=== PATIENT | female | born 1945 | race Caucasian/White ===

== ENCOUNTER 2024-11-24 09:11 | Inpatient (IN) | payer MEDICARE ==
[2024-11-24] VITALS (13 sets, daily range): BP systolic 101–147; BP diastolic 57–88; TEMP 97.2–97.9; O2SAT 97–99
[~2024-11-24] VITALS: Ht 152.4 cm; Wt 63.0 kg
[2024-11-24] MEDS ORDERED: ALBUTEROL FS 2.5 MG/3 ML VIAL.NEB ONE (09:22)
[2024-11-24] MEDS ORDERED: IPRATROPIUM NEB FS 0.5 MG/2.5 ML AMPUL.NEB ONE (09:22)
[2024-11-24] MEDS ORDERED: Magnesium 1GM/D5W 100ML PREMIX 200 ML IV ONE (09:23)
[2024-11-24] MEDS ORDERED: methylPREDNISolone SOD SUCC 125 MG/2ML VIAL ONE (09:23)
[2024-11-24] MEDS: IPRATROPIUM NEB FS 0.5 MG/2.5 ML AMPUL.NEB NEB ONE (09:29)
[2024-11-24] MEDS: ALBUTEROL FS 2.5 MG/3 ML VIAL.NEB NEB ONE (09:29)
[2024-11-24] MEDS: CEFTRIAXONE 1GM BAG (ER ONLY) 50 ML IV ONE (09:30)
[2024-11-24] MEDS: methylPREDNISolone SOD SUCC 125 MG/2ML VIAL IV ONE (09:30)
[2024-11-24] MEDS: Magnesium 1GM/D5W 100ML PREMIX 200 ML IV ONE (09:30)
[2024-11-24] MEDS: IV NS 0.9% 1,000 ML BAG IV ONE (09:30)
[2024-11-24 09:37] LABS: BASOPHILS % (AUTO) 0.2 % (0.0-2.0); EOSINOPHILS # (AUTO) 0.1 K/uL (0.0-0.7); EOSINOPHILS % (AUTO) 1.3 % (0.0-6.0); HEMATOCRIT 33 % (33-45); LYMPHOCYTES # (AUTO) 1.6 K/uL (0.8-4.8); LYMPHOCYTES % (AUTO) 20.9 % (20.0-44.0); MEAN CORPUSCULAR HEMOGLOBIN 33 PG (26.0-33.0); MEAN CORPUSCULAR HGB CONC 33 g/dl (31.0-36.0); MEAN CORPUSCULAR VOLUME 99 fL (82-100); MONOCYTES # (AUTO) 0.8 K/uL (0.1-1.30); NEUTROPHILS # (AUTO) 5.1 K/uL (1.8-8.9); NEUTROPHILS % (AUTO) 66.6 % (43.0-81.0); PLATELET COUNT (AUTO) 175 K/uL (150-450); RED BLOOD CELL COUNT(AUTO) 3.34 MIL/uL (4.0-5.2); RED CELL DISTRIBUTION WIDTH 13.5 % (11.5-15.0); WHITE BLOOD COUNT (AUTO) 7.7 K/uL (4.3-11.0)
[2024-11-24 09:45] LABS: CALCIUM, SERUM 9.2 mg/dL (8.5-10.1); CARBON DIOXIDE 33 mmol/L (21-32); CHLORIDE 104 mmol/L (98-107); CREATININE 1.1 mg/dL (0.6-1.3); GLUCOSE 156 mg/dL (74-106); POTASSIUM 4.4 mmol/L (3.5-5.1); SODIUM SERUM 140 mmol/L (136-145); UREA NITROGEN, BLOOD 29 mg/dL (7-18)
[2024-11-24 09:54] LABS: LACTIC ACID 1.1 mmol/L (0.4-2.0)
[2024-11-24] MEDS: AZITHROMYCIN 500 MG in IV D5W 250 ML IV ONE (10:30)
[2024-11-24 10:41] LABS: ABG BASE EXCESS -1.8 mmol/L (-2.0-3.0); ABG OXYGEN SATURATION 99.3 % (94.0-98.0); ABG PCO2 58.4 mmHg (32.0-45.0); ABG PH 7.264 (7.350-7.450); ABG PO2 512.3 mmHg (83.0-108.0); ABG TOTAL HEMOGLOBIN 10.7 G/dL (12.0-16.0); COHb 0.2 % (0.5-1.5); MetHb 0.4 % (0.0-1.5); O2Hb 98.7 % (94.0-97.0); SITE, ABG RIGHT RADIAL
[2024-11-24] MEDS ORDERED: ACETAMINOPHEN 325 MG TABLET PO PRN (11:00)
[2024-11-24] MEDS ORDERED: ZOLPIDEM TARTRATE 5 MG TABLET PO PRN (11:00)
[2024-11-24] MEDS ORDERED: MAG HYDROX/AL HYDROX/SIMETH 30 ML UDC PO PRN (11:00)
[2024-11-24] MEDS ORDERED: Z GUARD REMEDY 4 OZ OINT TP PRN (11:00)
[2024-11-24] MEDS ORDERED: ONDANSETRON HCL/PF 4 MG/2 ML VIAL IVP PRN (11:00)
[2024-11-24] MEDS ORDERED: MAGNESIUM HYDROXIDE 30 ML UDC PO PRN (11:00)
[2024-11-24] MEDS: methylPREDNISolone SOD SUCC 40 MG/ML VIAL IV SCH (12:53)
[2024-11-24] MEDS: LEVOFLOXACIN 500 MG /D5W 100ML 500 MG in PREMIX 1 EA IV ONE (12:53)
[2024-11-24] MEDS: ENOXAPARIN SODIUM 40 MG/0.4 ML DISP.SYRIN SQ SCH (12:54)
[2024-11-24] MEDS: IV D5/0.45 NACL 1,000 ML IV PRN (12:56)
[2024-11-24] MEDS ORDERED: AMLO2.5T2 PO (13:14)
[2024-11-24] MEDS ORDERED: FURO-145 PO (13:14)
[2024-11-24] MEDS ORDERED: VALS160T2 PO (13:14)
[2024-11-24] MEDS ORDERED: PRED10TA PO (13:14)
[2024-11-24] MEDS ORDERED: ESCI10TA PO (13:14)
[2024-11-24] MEDS ORDERED: IPRA4AER IH (13:14)
[2024-11-24] MEDS ORDERED: ACYC400T19 PO (13:14)
[2024-11-24] MEDS ORDERED: BUDE10.2 IH (13:14)
[2024-11-24] MEDS ORDERED: CYAN500T64 PO (13:14)
[2024-11-24] MEDS ORDERED: SUCR1TAB PO (13:14)
[2024-11-24] MEDS ORDERED: MIRT-90 PO (13:14)
[2024-11-24] MEDS ORDERED: MAGN250T10 PO (13:14)
[2024-11-24] MEDS ORDERED: HYALURONIDASE INJ (13:14)
[2024-11-24] MEDS ORDERED: FLUO10CA26 PO (13:14)
[2024-11-24] MEDS ORDERED: ATOR20TA PO (13:14)
[2024-11-24] MEDS ORDERED: PYRI60TA2 PO (13:14)
[2024-11-24] MEDS ORDERED: ZOLP10TA2 PO (13:14)
[2024-11-24] MEDS ORDERED: ASPI-1169 PO (13:14)
[2024-11-24] MEDS ORDERED: CHOL100043 PO (13:14)
[2024-11-24] MEDS ORDERED: ZINC50TA69 PO (13:14)
[2024-11-24] MEDS ORDERED: ANAS1TAB50 PO (13:14)
[2024-11-24] MEDS ORDERED: MYRBETRIQ PO (13:14)
[2024-11-24] MEDS ORDERED: PANT40TA2 PO (13:14)
[2024-11-24] MEDS ORDERED: MONT10TA22 PO (13:14)
[2024-11-24] MEDS ORDERED: [UNRECOGNIZED DRUG - OTHER] INJ (13:14)
[2024-11-24] MEDS ORDERED: ALBU8.5H8 IH (13:14)
[2024-11-24] MEDS: IPRATROPIUM NEB FS 0.5 MG/2.5 ML AMPUL.NEB NEB SCH (15:22)
[2024-11-24] MEDS: ALBUTEROL FS 2.5 MG/0.5 ML VIAL.NEB NEB SCH (15:22)
[2024-11-25] VITALS (27 sets, daily range): BP systolic 94–150; BP diastolic 44–104; TEMP 97–97.7; O2SAT 96–100
[2024-11-25 04:34] LABS: HEMATOCRIT 29 % (33-45); HEMOGLOBIN 9.6 g/dL (11.5-14.8); LYMPHOCYTES # (AUTO) 0.3 K/uL (0.8-4.8); LYMPHOCYTES % (AUTO) 7.6 % (20.0-44.0); MEAN CORPUSCULAR HEMOGLOBIN 33 PG (26.0-33.0); MEAN CORPUSCULAR HGB CONC 34 g/dl (31.0-36.0); MEAN CORPUSCULAR VOLUME 99 fL (82-100); MONOCYTES # (AUTO) 0.3 K/uL (0.1-1.30); MONOCYTES % (AUTO) 6.8 % (2.0-12.0); NEUTROPHILS % (AUTO) 85.6 % (43.0-81.0); PLATELET COUNT (AUTO) 152 K/uL (150-450); RED CELL DISTRIBUTION WIDTH 13.6 % (11.5-15.0); WHITE BLOOD COUNT (AUTO) 4.6 K/uL (4.3-11.0)
[2024-11-25 04:44] LABS: MAGNESIUM 2.6 mg/dL (1.8-2.4); PHOSPHORUS 4.2 mg/dL (2.5-4.9); POTASSIUM 5.1 mmol/L (3.5-5.1)
[2024-11-25 04:56] LABS: THYROID STIMULATING HORMONE 0.42 uIU/mL (0.358-3.74)
[2024-11-25] MEDS: pyRIDostigmine BROMIDE 60 MG TABLET PO SCH (08:26)
[2024-11-25] MEDS: ASPIRIN 81 MG TAB.CHEW PO SCH (08:27)
[2024-11-25 09:31] LABS: ABG BASE EXCESS -0.8 mmol/L (-2.0-3.0); ABG OXYGEN SATURATION 99.5 % (94.0-98.0); ABG PCO2 56.8 mmHg (32.0-45.0); ABG PH 7.286 (7.350-7.450); ABG PO2 507.7 mmHg (83.0-108.0); ABG TOTAL HEMOGLOBIN 10.8 G/dL (12.0-16.0); COHb 0.3 % (0.5-1.5); MetHb 0.2 % (0.0-1.5)
[2024-11-25] MEDS: methylPREDNISolone SOD SUCC 40 MG/ML VIAL IV SCH (10:42)
[2024-11-25] MEDS: LEVOFLOXACIN 250 MG /D5W 50 ML 250 MG in PREMIX 1 EA IV SCH (11:06)
[2024-11-25] MEDS ORDERED: ZOLPIDEM TARTRATE 10 MG TABLET PO PRN (22:00)
[2024-11-26] VITALS (28 sets, daily range): BP systolic 91–174; BP diastolic 46–146; TEMP 97–98.1; O2SAT 85–98
[2024-11-26] MEDS: LORAZEPAM INJ 2 MG/ML VIAL IV ONE (01:50)
[2024-11-26] MEDS ORDERED: ESCITALOPRAM OXALATE (10 MG) 10 MG TABLET PO SCH (09:00)
[2024-11-26] MEDS: ACYCLOVIR 200 MG CAPSULE PO SCH (09:05)
[2024-11-26] MEDS: ASPIRIN 81 MG TAB.CHEW PO SCH (09:05)
[2024-11-26] MEDS: Fluoxetine 10 mg capsule PO SCH (09:06)
[2024-11-26] MEDS: ANASTROZOLE 1 MG TABLET PO SCH (09:07)
[2024-11-26] MEDS: FUROSEMIDE 20 MG/2 ML VIAL IV STA (10:08)
[2024-11-27] VITALS (27 sets, daily range): BP systolic 108–150; BP diastolic 51–76; TEMP 97–98; O2SAT 95–100
[2024-11-27 04:36] LABS: HEMATOCRIT 28 % (33-45); HEMOGLOBIN 9.2 g/dL (11.5-14.8); LYMPHOCYTES # (AUTO) 0.4 K/uL (0.8-4.8); LYMPHOCYTES % (AUTO) 5.1 % (20.0-44.0); MEAN CORPUSCULAR HEMOGLOBIN 33 PG (26.0-33.0); MEAN CORPUSCULAR HGB CONC 33 g/dl (31.0-36.0); MEAN CORPUSCULAR VOLUME 99 fL (82-100); MONOCYTES # (AUTO) 0.3 K/uL (0.1-1.30); MONOCYTES % (AUTO) 3.7 % (2.0-12.0); NEUTROPHILS % (AUTO) 91.2 % (43.0-81.0); PLATELET COUNT (AUTO) 154 K/uL (150-450); RED CELL DISTRIBUTION WIDTH 13.8 % (11.5-15.0); WHITE BLOOD COUNT (AUTO) 8.8 K/uL (4.3-11.0)
[2024-11-27 04:50] LABS: CREATININE 1.2 mg/dL (0.6-1.3); POTASSIUM 4.6 mmol/L (3.5-5.1)
[2024-11-27 11:43] LABS: ABG BASE EXCESS 1.2 mmol/L (-2.0-3.0); ABG PCO2 43.7 mmHg (32.0-45.0); ABG PH 7.397 (7.350-7.450); ABG PO2 100.4 mmHg (83.0-108.0); ABG TOTAL HEMOGLOBIN 10.6 G/dL (12.0-16.0); COHb 0.3 % (0.5-1.5); O2Hb 96.7 % (94.0-97.0); SITE, ABG LEFT RADIAL
[2024-11-27] MEDS: LEVOFLOXACIN (250MG) 250 MG TABLET PO SCH (12:42)
[2024-11-28] VITALS (28 sets, daily range): BP systolic 107–164; BP diastolic 49–86; TEMP 98–98.1; O2SAT 94–99
[2024-11-29] VITALS (25 sets, daily range): BP systolic 95–172; BP diastolic 52–95; TEMP 98–98.1; O2SAT 92–100
[2024-11-29 04:27] LABS: BASOPHILS % (AUTO) 0.1 % (0.0-2.0); HEMATOCRIT 26 % (33-45); HEMOGLOBIN 8.7 g/dL (11.5-14.8); LYMPHOCYTES # (AUTO) 0.6 K/uL (0.8-4.8); LYMPHOCYTES % (AUTO) 6.6 % (20.0-44.0); MEAN CORPUSCULAR HEMOGLOBIN 33 PG (26.0-33.0); MEAN CORPUSCULAR HGB CONC 34 g/dl (31.0-36.0); MEAN CORPUSCULAR VOLUME 98 fL (82-100); MONOCYTES # (AUTO) 0.4 K/uL (0.1-1.30); MONOCYTES % (AUTO) 4.6 % (2.0-12.0); NEUTROPHILS # (AUTO) 8.1 K/uL (1.8-8.9); NEUTROPHILS % (AUTO) 88.7 % (43.0-81.0); PLATELET COUNT (AUTO) 139 K/uL (150-450); RED BLOOD CELL COUNT(AUTO) 2.62 MIL/uL (4.0-5.2); RED CELL DISTRIBUTION WIDTH 13.6 % (11.5-15.0); WHITE BLOOD COUNT (AUTO) 9.1 K/uL (4.3-11.0)
[2024-11-29 04:33] LABS: POTASSIUM 4.7 mmol/L (3.5-5.1)
[2024-11-29] MEDS: LORAZEPAM INJ 2 MG/ML VIAL IV SCH (07:54)
[2024-11-29] MEDS: GUAIFENESIN LA 600 MG TABLET.SA PO SCH (10:10)
[2024-11-29] MEDS: LEVOFLOXACIN (250MG) 250 MG TABLET PO SCH (11:56)
[2024-11-29] MEDS: FUROSEMIDE 20 MG/2 ML VIAL IV ONE (14:56)
[2024-11-29] MEDS: methylPREDNISolone SOD SUCC 40 MG/ML VIAL IV SCH (17:31)
[2024-11-30] VITALS (36 sets, daily range): BP systolic 113–151; BP diastolic 44–122; TEMP 98–98.2; O2SAT 87–100
[2024-11-30 04:02] LABS: BASOPHILS % (AUTO) 0.1 % (0.0-2.0); HEMATOCRIT 27 % (33-45); LYMPHOCYTES # (AUTO) 0.5 K/uL (0.8-4.8); LYMPHOCYTES % (AUTO) 5.4 % (20.0-44.0); MEAN CORPUSCULAR HEMOGLOBIN 32 PG (26.0-33.0); MEAN CORPUSCULAR HGB CONC 33 g/dl (31.0-36.0); MEAN CORPUSCULAR VOLUME 97 fL (82-100); MONOCYTES # (AUTO) 0.4 K/uL (0.1-1.30); MONOCYTES % (AUTO) 4.9 % (2.0-12.0); NEUTROPHILS # (AUTO) 7.4 K/uL (1.8-8.9); NEUTROPHILS % (AUTO) 89.6 % (43.0-81.0); PLATELET COUNT (AUTO) 129 K/uL (150-450); RED BLOOD CELL COUNT(AUTO) 2.79 MIL/uL (4.0-5.2); RED CELL DISTRIBUTION WIDTH 13.4 % (11.5-15.0); WHITE BLOOD COUNT (AUTO) 8.3 K/uL (4.3-11.0)
[2024-11-30 05:48] LABS: CALCIUM, SERUM 8.6 mg/dL (8.5-10.1); CREATININE 1.4 mg/dL (0.6-1.3); POTASSIUM 4.5 mmol/L (3.5-5.1)
[2024-11-30] MEDS: NEOMY SULF/BACITRAC ZN/POLY 15 GM TUBE TP SCH (09:06)
[2024-11-30] MEDS: methylPREDNISolone SOD SUCC 40 MG/ML VIAL IV SCH (10:39)
[2024-12-01] VITALS (38 sets, daily range): BP systolic 112–157; BP diastolic 50–106; TEMP 98–98.4; O2SAT 91–100
[2024-12-01 04:13] LABS: HEMATOCRIT 27 % (33-45); HEMOGLOBIN 8.8 g/dL (11.5-14.8); LYMPHOCYTES % (AUTO) 10.1 % (20.0-44.0); MEAN CORPUSCULAR HEMOGLOBIN 32 PG (26.0-33.0); MEAN CORPUSCULAR HGB CONC 33 g/dl (31.0-36.0); MEAN CORPUSCULAR VOLUME 98 fL (82-100); MONOCYTES # (AUTO) 0.9 K/uL (0.1-1.30); MONOCYTES % (AUTO) 9.4 % (2.0-12.0); NEUTROPHILS # (AUTO) 7.7 K/uL (1.8-8.9); NEUTROPHILS % (AUTO) 80.5 % (43.0-81.0); PLATELET COUNT (AUTO) 130 K/uL (150-450); RED BLOOD CELL COUNT(AUTO) 2.78 MIL/uL (4.0-5.2); RED CELL DISTRIBUTION WIDTH 13.8 % (11.5-15.0); WHITE BLOOD COUNT (AUTO) 9.5 K/uL (4.3-11.0)
[2024-12-01 04:48] LABS: CALCIUM, SERUM 8.8 mg/dL (8.5-10.1); CREATININE 1.1 mg/dL (0.6-1.3); POTASSIUM 4.4 mmol/L (3.5-5.1)
[2024-12-02] VITALS (36 sets, daily range): BP systolic 83–147; BP diastolic 46–123; TEMP 97.8–98.2; O2SAT 91–100
[2024-12-02 04:52] LABS: BASOPHILS % (AUTO) 0.1 % (0.0-2.0); EOSINOPHILS # (AUTO) 0.1 K/uL (0.0-0.7); EOSINOPHILS % (AUTO) 0.6 % (0.0-6.0); HEMATOCRIT 27 % (33-45); HEMOGLOBIN 9.1 g/dL (11.5-14.8); LYMPHOCYTES # (AUTO) 1.4 K/uL (0.8-4.8); LYMPHOCYTES % (AUTO) 14.2 % (20.0-44.0); MEAN CORPUSCULAR HEMOGLOBIN 33 PG (26.0-33.0); MEAN CORPUSCULAR HGB CONC 34 g/dl (31.0-36.0); MEAN CORPUSCULAR VOLUME 97 fL (82-100); NEUTROPHILS # (AUTO) 7.2 K/uL (1.8-8.9); NEUTROPHILS % (AUTO) 75.1 % (43.0-81.0); PLATELET COUNT (AUTO) 138 K/uL (150-450); RED BLOOD CELL COUNT(AUTO) 2.76 MIL/uL (4.0-5.2); RED CELL DISTRIBUTION WIDTH 13.5 % (11.5-15.0); WHITE BLOOD COUNT (AUTO) 9.5 K/uL (4.3-11.0)
[2024-12-02 04:58] LABS: APPEARANCE,URINE CLEAR (CLEAR); BILIRUBIN,URINE NEGATIVE (NEGATIVE); BLOOD, URINE 3+ Ery/uL (NEGATIVE); COLOR,URINE YELLOW (YELLOW); KETONES,URINE NEGATIVE (NEGATIVE); LEUKOCYTE ESTERASE ,URINE NEGATIVE (NEGATIVE); NITRITE, URINE NEGATIVE (NEGATIVE); PROTEIN,URINE TRACE mg/dl (NEGATIVE); UGLUCOSE NEGATIVE (NEGATIVE); UROBILINOGEN,URINE 0.2 EU/dL (0.2)
[2024-12-02 05:04] LABS: ALBUMIN 2.9 g/dL (3.4-5.0); BILIRUBIN,TOTAL 0.4 mg/dL (0.2-1.0); CALCIUM, SERUM 8.7 mg/dL (8.5-10.1); MAGNESIUM 2.1 mg/dL (1.8-2.4); PHOSPHORUS 2.8 mg/dL (2.5-4.9); TOTAL PROTEIN, SERUM 5.1 g/dL (6.4-8.2)
[2024-12-02 05:20] LABS: RBC,URINE 21-50 /HPF (0-2)
[2024-12-02 05:21] LABS: ADD URINE CULTURE NO; BACTERIA,URINE Few /HPF (None Seen); SQUAMOUS EPITHELIAL CELL,UR 0-2 /HPF (None Seen)
[2024-12-02 05:22] LABS: MUCUS,URINE Moderate /LPF (None Seen)
[2024-12-02 05:47] LABS: EOSINOPHIL,URINE None Seen
[2024-12-02 05:53] LABS: URINE TOTAL PROTEIN 33.3 mg/dL (0-11.9)
[2024-12-02] MEDS: DOCUSATE SODIUM 100 MG CAPSULE PO SCH (14:29)
[2024-12-02] MEDS: predniSONE 20 MG TABLET PO SCH (14:29)
[2024-12-03] VITALS (36 sets, daily range): BP systolic 105–143; BP diastolic 47–90; TEMP 97.7–98.1; O2SAT 92–100
[2024-12-03 04:45] LABS: EOSINOPHILS % (AUTO) 0.1 % (0.0-6.0); HEMATOCRIT 26 % (33-45); HEMOGLOBIN 8.8 g/dL (11.5-14.8); LYMPHOCYTES # (AUTO) 0.9 K/uL (0.8-4.8); LYMPHOCYTES % (AUTO) 8.8 % (20.0-44.0); MEAN CORPUSCULAR HEMOGLOBIN 33 PG (26.0-33.0); MEAN CORPUSCULAR HGB CONC 34 g/dl (31.0-36.0); MEAN CORPUSCULAR VOLUME 96 fL (82-100); MONOCYTES # (AUTO) 0.7 K/uL (0.1-1.30); MONOCYTES % (AUTO) 6.4 % (2.0-12.0); NEUTROPHILS # (AUTO) 8.6 K/uL (1.8-8.9); NEUTROPHILS % (AUTO) 84.7 % (43.0-81.0); PLATELET COUNT (AUTO) 124 K/uL (150-450); RED BLOOD CELL COUNT(AUTO) 2.69 MIL/uL (4.0-5.2); RED CELL DISTRIBUTION WIDTH 13.7 % (11.5-15.0); WHITE BLOOD COUNT (AUTO) 10.1 K/uL (4.3-11.0)
[2024-12-03 04:58] LABS: CALCIUM, SERUM 8.6 mg/dL (8.5-10.1); CREATININE 0.9 mg/dL (0.6-1.3); POTASSIUM 4.1 mmol/L (3.5-5.1)
[2024-12-03 09:12] LABS: PTH, INTACT 34 pg/mL (15-65)
[2024-12-03 11:07] LABS: *SPE A/G RATIO 1.5 (0.7-1.7); *SPE ALBUMIN 2.7 g/dL (2.9-4.4); *SPE ALPHA-1-GLOBULIN 0.2 g/dL (0.0-0.4); *SPE ALPHA-2-GLOBULIN 0.6 g/dL (0.4-1.0); *SPE BETA GLOBULIN 0.7 g/dL (0.7-1.3); *SPE GLOBULIN, TOTAL 1.8 g/dL (2.2-3.9); *SPE M-SPIKE Not Observed g/dL (Not Observed); *SPE PROTEIN TOTAL 4.5 g/dL (6.0-8.5); *SPEGAMMA GLOBULIN 0.2 g/dL (0.4-1.8)
[2024-12-03 13:32] LABS: ABG BASE EXCESS 5.2 mmol/L (-2.0-3.0); ABG OXYGEN SATURATION 92.9 % (94.0-98.0); ABG PCO2 39.4 mmHg (32.0-45.0); ABG PH 7.485 (7.350-7.450); ABG PO2 65.8 mmHg (83.0-108.0); ABG TOTAL HEMOGLOBIN 9.7 G/dL (12.0-16.0); MetHb 0.2 % (0.0-1.5); O2Hb 92.7 % (94.0-97.0); SITE, ABG RIGHT RADIAL
[2024-12-03] MEDS: MIRTAZAPINE 15 MG TABLET PO SCH (20:20)
[2024-12-04] VITALS (33 sets, daily range): BP systolic 98–147; BP diastolic 41–86; TEMP 97.5–98.1; O2SAT 89–100
[2024-12-04 04:50] LABS: BASOPHILS % (AUTO) 0.2 % (0.0-2.0); EOSINOPHILS # (AUTO) 0.3 K/uL (0.0-0.7); EOSINOPHILS % (AUTO) 2.4 % (0.0-6.0); HEMATOCRIT 28 % (33-45); HEMOGLOBIN 9.6 g/dL (11.5-14.8); LYMPHOCYTES # (AUTO) 1.5 K/uL (0.8-4.8); MEAN CORPUSCULAR HEMOGLOBIN 34 PG (26.0-33.0); MEAN CORPUSCULAR HGB CONC 35 g/dl (31.0-36.0); MEAN CORPUSCULAR VOLUME 98 fL (82-100); MONOCYTES % (AUTO) 9.1 % (2.0-12.0); NEUTROPHILS # (AUTO) 7.9 K/uL (1.8-8.9); NEUTROPHILS % (AUTO) 74.3 % (43.0-81.0); PLATELET COUNT (AUTO) 133 K/uL (150-450); RED BLOOD CELL COUNT(AUTO) 2.83 MIL/uL (4.0-5.2); RED CELL DISTRIBUTION WIDTH 13.8 % (11.5-15.0); WHITE BLOOD COUNT (AUTO) 10.7 K/uL (4.3-11.0)
[2024-12-04 04:57] LABS: CALCIUM, SERUM 8.7 mg/dL (8.5-10.1); CREATININE 0.9 mg/dL (0.6-1.3); POTASSIUM 3.8 mmol/L (3.5-5.1)
[2024-12-04 05:53] LABS: ABG BASE EXCESS 2.8 mmol/L (-2.0-3.0); ABG OXYGEN SATURATION 91.6 % (94.0-98.0); ABG PCO2 38.2 mmHg (32.0-45.0); ABG PH 7.463 (7.350-7.450); ABG PO2 62.2 mmHg (83.0-108.0); ABG TOTAL HEMOGLOBIN 9.4 G/dL (12.0-16.0); COHb 0.2 % (0.5-1.5); MetHb 0.1 % (0.0-1.5); O2Hb 91.3 % (94.0-97.0); SITE, ABG RIGHT RADIAL
[2024-12-05] VITALS (22 sets, daily range): BP systolic 102–145; BP diastolic 46–61; TEMP 97.5–98.2; O2SAT 93–100
[2024-12-05 07:59] LABS: BASOPHILS % (AUTO) 0.1 % (0.0-2.0); EOSINOPHILS # (AUTO) 0.4 K/uL (0.0-0.7); EOSINOPHILS % (AUTO) 4.5 % (0.0-6.0); HEMATOCRIT 28 % (33-45); HEMOGLOBIN 9.3 g/dL (11.5-14.8); LYMPHOCYTES # (AUTO) 1.6 K/uL (0.8-4.8); LYMPHOCYTES % (AUTO) 16.1 % (20.0-44.0); MEAN CORPUSCULAR HEMOGLOBIN 33 PG (26.0-33.0); MEAN CORPUSCULAR HGB CONC 34 g/dl (31.0-36.0); MEAN CORPUSCULAR VOLUME 97 fL (82-100); MONOCYTES # (AUTO) 0.9 K/uL (0.1-1.30); MONOCYTES % (AUTO) 8.9 % (2.0-12.0); NEUTROPHILS % (AUTO) 70.4 % (43.0-81.0); PLATELET COUNT (AUTO) 147 K/uL (150-450); RED BLOOD CELL COUNT(AUTO) 2.84 MIL/uL (4.0-5.2)
[2024-12-05 09:16] LABS: CALCIUM, SERUM 8.9 mg/dL (8.5-10.1); POTASSIUM 3.6 mmol/L (3.5-5.1)
[2024-12-05 09:20] LABS: MAGNESIUM 2.2 mg/dL (1.8-2.4); PHOSPHORUS 3.7 mg/dL (2.5-4.9)
[2024-12-05] MEDS: PANTOPRAZOLE 40 MG TABLET.DR PO SCH (14:36)
[2024-12-06] VITALS (13 sets, daily range): BP systolic 103–130; BP diastolic 40–70; TEMP 97.9–99.1; O2SAT 90–100
[2024-12-06 07:19] LABS: BASOPHILS % (AUTO) 0.1 % (0.0-2.0); EOSINOPHILS # (AUTO) 0.4 K/uL (0.0-0.7); EOSINOPHILS % (AUTO) 3.8 % (0.0-6.0); HEMATOCRIT 25 % (33-45); HEMOGLOBIN 8.4 g/dL (11.5-14.8); LYMPHOCYTES # (AUTO) 1.4 K/uL (0.8-4.8); LYMPHOCYTES % (AUTO) 12.3 % (20.0-44.0); MEAN CORPUSCULAR HEMOGLOBIN 32 PG (26.0-33.0); MEAN CORPUSCULAR HGB CONC 33 g/dl (31.0-36.0); MEAN CORPUSCULAR VOLUME 97 fL (82-100); MONOCYTES # (AUTO) 0.8 K/uL (0.1-1.30); MONOCYTES % (AUTO) 6.9 % (2.0-12.0); NEUTROPHILS # (AUTO) 8.6 K/uL (1.8-8.9); NEUTROPHILS % (AUTO) 76.9 % (43.0-81.0); PLATELET COUNT (AUTO) 154 K/uL (150-450); RED BLOOD CELL COUNT(AUTO) 2.61 MIL/uL (4.0-5.2); RED CELL DISTRIBUTION WIDTH 13.7 % (11.5-15.0); WHITE BLOOD COUNT (AUTO) 11.2 K/uL (4.3-11.0)
[2024-12-06 07:32] LABS: CALCIUM, SERUM 8.4 mg/dL (8.5-10.1); CREATININE 0.9 mg/dL (0.6-1.3); POTASSIUM 3.8 mmol/L (3.5-5.1)
[2024-12-06 23:26] LABS: BASOPHILS % (AUTO) 0.2 % (0.0-2.0); EOSINOPHILS # (AUTO) 0.6 K/uL (0.0-0.7); EOSINOPHILS % (AUTO) 4.5 % (0.0-6.0); HEMATOCRIT 31 % (33-45); HEMOGLOBIN 9.9 g/dL (11.5-14.8); LYMPHOCYTES # (AUTO) 1.5 K/uL (0.8-4.8); LYMPHOCYTES % (AUTO) 10.1 % (20.0-44.0); MEAN CORPUSCULAR HEMOGLOBIN 32 PG (26.0-33.0); MEAN CORPUSCULAR HGB CONC 32 g/dl (31.0-36.0); MEAN CORPUSCULAR VOLUME 99 fL (82-100); MONOCYTES % (AUTO) 6.9 % (2.0-12.0); NEUTROPHILS # (AUTO) 11.3 K/uL (1.8-8.9); NEUTROPHILS % (AUTO) 78.3 % (43.0-81.0); PLATELET COUNT (AUTO) 172 K/uL (150-450); RED BLOOD CELL COUNT(AUTO) 3.12 MIL/uL (4.0-5.2); RED CELL DISTRIBUTION WIDTH 14.5 % (11.5-15.0); WHITE BLOOD COUNT (AUTO) 14.4 K/uL (4.3-11.0)
[2024-12-06 23:41] LABS: CALCIUM, SERUM 8.6 mg/dL (8.5-10.1); POTASSIUM 4.4 mmol/L (3.5-5.1)
[2024-12-06 23:46] LABS: ALBUMIN 3.1 g/dL (3.4-5.0); BILIRUBIN,TOTAL 0.6 mg/dL (0.2-1.0); MAGNESIUM 2.1 mg/dL (1.8-2.4); TOTAL PROTEIN, SERUM 5.8 g/dL (6.4-8.2)
[2024-12-07] VITALS (16 sets, daily range): BP systolic 102–144; BP diastolic 50–89; TEMP 97.9–99; O2SAT 91–98
[2024-12-07] MEDS: METOPROLOL TARTRATE 25 MG TABLET PO SCH (13:19)
[2024-12-07] MEDS: LOSARTAN POTASSIUM 25 MG TABLET PO SCH (13:21)
[2024-12-08] VITALS (7 sets, daily range): BP systolic 97–106; BP diastolic 50–75; TEMP 97.9–99.1; O2SAT 94–98
[2024-12-08 07:36] LABS: CALCIUM, SERUM 8.3 mg/dL (8.5-10.1); CREATININE 1.1 mg/dL (0.6-1.3); POTASSIUM 3.8 mmol/L (3.5-5.1)
[2024-12-08 07:37] LABS: BASOPHILS % (AUTO) 0.2 % (0.0-2.0); EOSINOPHILS # (AUTO) 0.5 K/uL (0.0-0.7); EOSINOPHILS % (AUTO) 4.4 % (0.0-6.0); HEMATOCRIT 25 % (33-45); HEMOGLOBIN 8.3 g/dL (11.5-14.8); LYMPHOCYTES # (AUTO) 1.3 K/uL (0.8-4.8); LYMPHOCYTES % (AUTO) 11.8 % (20.0-44.0); MEAN CORPUSCULAR HEMOGLOBIN 32 PG (26.0-33.0); MEAN CORPUSCULAR HGB CONC 33 g/dl (31.0-36.0); MEAN CORPUSCULAR VOLUME 98 fL (82-100); MONOCYTES # (AUTO) 0.9 K/uL (0.1-1.30); MONOCYTES % (AUTO) 7.8 % (2.0-12.0); NEUTROPHILS # (AUTO) 8.3 K/uL (1.8-8.9); NEUTROPHILS % (AUTO) 75.8 % (43.0-81.0); PLATELET COUNT (AUTO) 171 K/uL (150-450); RED BLOOD CELL COUNT(AUTO) 2.58 MIL/uL (4.0-5.2); RED CELL DISTRIBUTION WIDTH 14.3 % (11.5-15.0); WHITE BLOOD COUNT (AUTO) 10.9 K/uL (4.3-11.0)
[2024-12-08] MEDS: ALBUTEROL FS 2.5 MG/0.5 ML VIAL.NEB NEB SCH (08:30)
[2024-12-08] MEDS: IPRATROPIUM NEB FS 0.5 MG/2.5 ML AMPUL.NEB NEB SCH (08:30)
[2024-12-08] MEDS ORDERED: DAPA5TAB PO (11:18)
[2024-12-08] MEDS ORDERED: GUAI600T53 PO (11:18)
[2024-12-08] MEDS ORDERED: Neomy Sulf/Bacitrac Zn/Poly TP (11:18)
[2024-12-08] MEDS ORDERED: METO25TA20 PO (11:18)
[2024-12-08] MEDS ORDERED: FLUT1BLS6 IH (11:18)
[2024-12-08] MEDS ORDERED: MIRT-121 PO (11:18)
[2024-12-08] MEDS ORDERED: SACU1TAB PO (11:18)
[2024-12-08] MEDS ORDERED: PRED20TA PO (11:18)
[2024-12-08] MEDS ORDERED: ALBU18HF2 INH (11:18)
[2024-12-08] MEDS ORDERED: PYRI60TA2 PO (11:18)
[2024-12-08] MEDS ORDERED: DOCU100C36 PO (11:18)
[2024-12-08] MEDS ORDERED: ALBU2.5V13 NEB (11:18)
[2024-12-08] MEDS ORDERED: PANT40TA49 PO (11:18)
[2024-12-08] MEDS ORDERED: LORA-259 PO (13:07)
== END 2024-12-08 13:15 | disposition home health service (06) | DRG 177 ==
LOC: ER 09:17 → ICU 11:46 → TELE1 12-04 18:13
PROVIDERS: ADMIT Internal Medicine; ATTEND Nurse Practitioner Acute Care
PROC: 5A09557 Assistance with Respiratory Ventilation, Greater than 96 Consecutive Hours, Continuous Positive Airway Pressure (ICD-10-PCS; principal; 2024-11-24)
DX: J15.69 Pneumonia due to other Gram-negative bacteria (principal); I21.A1 Myocardial infarction type 2; I50.23 Acute on chronic systolic (congestive) heart failure; J96.21 Acute and chronic respiratory failure with hypoxia; J96.22 Acute and chronic respiratory failure with hypercapnia; N17.9 Acute kidney failure, unspecified; J44.0 Chronic obstructive pulmonary disease with (acute) lower respiratory infection; J44.1 Chronic obstructive pulmonary disease with (acute) exacerbation; E87.0 Hyperosmolality and hypernatremia; I11.0 Hypertensive heart disease with heart failure; J12.9 Viral pneumonia, unspecified; D64.9 Anemia, unspecified; E86.0 Dehydration; G70.00 Myasthenia gravis without (acute) exacerbation; Z20.822 Contact with and (suspected) exposure to COVID-19; Z90.10 Acquired absence of unspecified breast and nipple; Z85.3 Personal history of malignant neoplasm of breast; Z92.3 Personal history of irradiation; Z53.20 Procedure and treatment not carried out because of patient's decision for unspecified reasons; Z99.81 Dependence on supplemental oxygen; M89.8X9 Other specified disorders of bone, unspecified site; Z87.891 Personal history of nicotine dependence; Z79.82 Long term (current) use of aspirin; Z79.51 Long term (current) use of inhaled steroids; Z79.899 Other long term (current) drug therapy; J43.9 Emphysema, unspecified; Y95 Nosocomial condition; F41.9 Anxiety disorder, unspecified
CPT/HCPCS: 31720; 36415; 36600; 71045-TC; 80048-TC; 80053-TC; 81001; 82550-TC; 82570-TC; 82803-TC; 83605-TC; 83735-TC; 83880; 83970; 84100-TC; 84155; 84165; 84300-TC; 84443-TC; 84484-TC; 85025-TC; 87040-TC; 87081-TC; 92526; 92611-TC; 93307-TC; 94660; 94760-TC; 94761-TC; 94762-TC; 94799-TC; 97110-TC; 97116-TC; 97530-TC; 99082-TC; A4216; A4223; G0378; J1650; J1938; J1956; J2060; J2919; J3475; J3490

== ENCOUNTER 2025-01-25 11:40 | Emergency (ER) | payer MEDICARE ==
[~2025-01-25] VITALS: Ht 152.4 cm; Wt 61.2 kg
[~2025-01-25 11:40] MED LIST: ACYC400T19 PO; ALBU18HF2 INH; ALBU2.5V13 NEB; ALBU8.5H8 IH; ANAS1TAB50 PO; ATOR20TA PO; CHOL100043 PO; CYAN500T64 PO; DAPA5TAB PO; DOCU100C36 PO; ESCI10TA PO; FLUO10CA26 PO; FLUT1BLS6 IH; FURO-145 PO; GUAI600T53 PO; HYALURONIDASE INJ; IPRA4AER IH; LORA-259 PO; MAGN250T10 PO; METO25TA20 PO; MIRT-121 PO; MIRT-90 PO; MONT10TA22 PO; MYRBETRIQ PO; Neomy Sulf/Bacitrac Zn/Poly TP; PANT40TA2 PO; PANT40TA49 PO; PRED20TA PO; PYRI60TA2 PO; SACU1TAB PO; SUCR1TAB PO; ZINC50TA69 PO; ZOLP10TA2 PO; [UNRECOGNIZED DRUG - OTHER] INJ
[2025-01-25 12:34] LABS: PLATELET COUNT (AUTO) 217 K/uL (150-450); RED BLOOD CELL COUNT(AUTO) 3.13 MIL/uL (4.0-5.2); RED CELL DISTRIBUTION WIDTH 15.7 % (11.5-15.0); WHITE BLOOD COUNT (AUTO) 8.8 K/uL (4.3-11.0)
[2025-01-25] MEDS: VALACYCLOVIR HCL 500 MG TABLET PO ONE (12:39)
[2025-01-25 12:41] LABS: CALCIUM, SERUM 9.0 mg/dL (8.5-10.1); CREATININE 0.9 mg/dL (0.6-1.3); SODIUM SERUM 137 mmol/L (136-145); UREA NITROGEN, BLOOD 23 mg/dL (7-18)
[2025-01-25 12:42] LABS: SERUM AMMONIA 25 umol/L (11-32)
[2025-01-25 12:47] LABS: ALCOHOL, BLOOD < 3 mg/dL (0-10); ASPARTATE AMINOTRANSFERASE 33 U/L (15-37); TOTAL PROTEIN, SERUM 6.6 g/dL (6.4-8.2)
[2025-01-25] MEDS ORDERED: PRED20TA PO (13:52)
[2025-01-25] MEDS ORDERED: VALA10002 PO (13:52)
[2025-01-25 14:00] LABS: APPEARANCE,URINE CLEAR (CLEAR); BLOOD, URINE NEGATIVE Ery/uL (NEGATIVE); LEUKOCYTE ESTERASE ,URINE NEGATIVE (NEGATIVE); NITRITE, URINE NEGATIVE (NEGATIVE); UGLUCOSE NEGATIVE (NEGATIVE)
[2025-01-25 14:08] VITALS: BP 143/88; TEMP 98.5; O2SAT 95
[2025-01-25 14:09] LABS: AMPHETAMINE, URINE NEGATIVE (NEGATIVE); BARBITURATE, URINE NEGATIVE (NEGATIVE); BENZODIAZEPINE, URINE NEGATIVE (NEGATIVE); COCCAINE, URINE NEGATIVE (NEGATIVE); OPIATE, URINE NEGATIVE (NEGATIVE)
[2025-01-25 14:10] LABS: CANNABINOID, URINE POSITIVE (NEGATIVE)
== END 2025-01-25 14:09 | disposition home or self-care (01) ==
LOC: ER 11:43
DX: G51.0 Bell's palsy (principal); E78.5 Hyperlipidemia, unspecified; B00.9 Herpesviral infection, unspecified; G70.00 Myasthenia gravis without (acute) exacerbation; I10 Essential (primary) hypertension; J44.9 Chronic obstructive pulmonary disease, unspecified; Z79.52 Long term (current) use of systemic steroids; Z79.624 Long term (current) use of inhibitors of nucleotide synthesis; Z79.811 Long term (current) use of aromatase inhibitors; Z79.84 Long term (current) use of oral hypoglycemic drugs; Z79.899 Other long term (current) drug therapy; Z85.3 Personal history of malignant neoplasm of breast; Z86.73 Personal history of transient ischemic attack (TIA), and cerebral infarction without residual deficits; Z99.81 Dependence on supplemental oxygen
CPT/HCPCS: 99285; 93005; 71045; 70450; 82140; 85025; 80048; 80076; 81003; 36415; 84443; 82962; 80320; 80307; J7512; G0480